=== PATIENT | female | born 1965 | race African-American/Black ===

== ENCOUNTER 2019-05-06 02:29 | Emergency (ER) | payer OTHER ==
[~2019-05-06] VITALS: Ht 170.2 cm; Wt 142.9 kg
[2019-05-06] MEDS ORDERED: LISINOPRIL-HCT1 EAC1 PO (02:33)
[2019-05-06] MEDS ORDERED: HYDROCODONE PO (03:19)
[2019-05-06 03:23] LABS: ABSOLUTE NEUTROPHILS 6.1 thou/uL (1.4-8.2); BASOPHILS 0.5 % (0.0-2.0); EOSINOPHILS 1.3 % (0.0-3.0); LYMPHOCYTES 23.8 % (24.0-44.0); MCHC 32.5 g/dL (28.0-37.0); MCV 92.3 fL (80.0-100.0); MONOCYTES 6.5 % (1.0-8.0); PLATELET COUNT 404 thou/uL (150-400); POLYS 67.9 % (36.0-66.0); RBC 3.68 mil/uL (4.20-5.00); WBC 8.9 thou/uL (4.0-11.0)
[2019-05-06 03:34] LABS: CALCIUM 9.5 mg/dL (8.5-10.1); CREATININE 1.6 mg/dL (0.6-1.0); POTASSIUM 4.4 mmol/L (3.5-5.1)
[2019-05-06 03:40] LABS: ALBUMIN 3.5 g/dL (3.4-5.0); TOTAL BILIRUBIN 0.6 mg/dL (<0.1-1.0)
[2019-05-06 04:10] LABS: URINE BILIRUBIN NEGATIVE (Negative); URINE BLOOD NEGATIVE (Negative); URINE CLARITY CLEAR; URINE COLOR YELLOW; URINE GLUCOSE-RANDOM* NEGATIVE (Negative); URINE KETONES NEGATIVE (Negative); URINE LEUKOCYTES-REFLEX NEGATIVE (Negative); URINE NITRITE-REFLEX NEGATIVE (Negative); URINE PROTEIN (DIPSTICK) NEGATIVE (Negative); URINE SPECIFIC GRAVITY >= 1.030 (1.005-1.035); URINE UROBILINOGEN 0.2 E.U./dl (0.2-1.0)
[2019-05-06 04:21] LABS: BACTERIA-REFLEX None Seen /HPF (None Seen); CASTS None Seen /LPF (None Seen); CRYSTALS None Seen /LPF (None Seen); MUCUS None Seen strn/LPF (None Seen); SQUAMOUS None Seen /LPF (0-3); URINE RBC None Seen /HPF (0-2); URINE WBC-REFLEX None Seen /HPF (0-5)
[2019-05-06] MEDS ORDERED: ZOFRAN ODT4 MG PO (05:26)
[2019-05-06 05:56] VITALS: BP 109/61
== END 2019-05-06 06:11 | disposition home or self-care (01) ==
LOC: ER 02:29
PROVIDERS: Emergency Medicine
DX: K80.20 Calculus of gallbladder without cholecystitis without obstruction (principal); K44.9 Diaphragmatic hernia without obstruction or gangrene; R11.10 Vomiting, unspecified; I10 Essential (primary) hypertension; Z88.6 Allergy status to analgesic agent; Z88.5 Allergy status to narcotic agent

== ENCOUNTER 2020-08-25 | Emergency (ER) | payer OTHER ==
[~2020-08-25] VITALS: Ht 167.6 cm; Wt 149.7 kg
[~2020-08-25] MED LIST: HYDROCODONE PO; LISINOPRIL-HCT1 EAC1 PO; ZOFRAN ODT4 MG PO
[2020-08-25] MEDS ORDERED: LISINOPRIL10 MG PO (00:19)
[2020-08-25] MEDS ORDERED: TOPROL XL50 MG PO (00:19)
[2020-08-25] MEDS ORDERED: NORCO7.5 PO (00:20)
[2020-08-25] MEDS ORDERED: IRON325 M1 PO (00:20)
[2020-08-25] MEDS ORDERED: ADIPEX-P37.5 MG PO (00:21)
[2020-08-25 01:03] VITALS: BP 183/93
== END 2020-08-25 01:20 | disposition home or self-care (01) ==
LOC: ER
DX: I10 Essential (primary) hypertension (principal); Z90.49 Acquired absence of other specified parts of digestive tract; Z79.899 Other long term (current) drug therapy; Z88.8 Allergy status to other drugs, medicaments and biological substances